=== PATIENT | female | born 1980 | race Caucasian/White ===

== ENCOUNTER 2018-03-18 12:17 | Emergency (ER) | payer BC, OTHER ==
[~2018-03-18] VITALS: Ht 152.4 cm; Wt 46.7 kg
--- NOTE | 2018-03-18 13:00 | NUR ---
presented to the er for r hand pain, on room air, breathing evenly and unlabored. kept comfortable. will continue to monitor accordingly.
[2018-03-18 13:50] VITALS: BP 101/55
--- NOTE | 2018-03-18 13:51 | NUR ---
Patient discharged to home in stable condition. Written and verbal after care instructions given. Patient verbalizes understanding of instruction.
== END 2018-03-18 13:50 | disposition home or self-care (01) ==
LOC: ER 12:17
DX: S63.681A Other sprain of right thumb, initial encounter (principal); F17.200 Nicotine dependence, unspecified, uncomplicated; Z98.890 Other specified postprocedural states; X58.XXXA Exposure to other specified factors, initial encounter; Y93.68 Activity, volleyball (beach) (court); Y92.89 Other specified places as the place of occurrence of the external cause; Y99.8 Other external cause status
CPT/HCPCS: 29125; 73130; 99283; A4606

== ENCOUNTER 2018-06-01 16:28 | Emergency (ER) | payer BC, MEDICAID ==
[~2018-06-01] VITALS: Ht 152.4 cm; Wt 45.4 kg
[2018-06-01 16:40] VITALS: BP 94/63
== END 2018-06-01 17:31 | disposition home or self-care (01) ==
LOC: ER 16:37
DX: H93.12 Tinnitus, left ear (principal); F17.200 Nicotine dependence, unspecified, uncomplicated; Z98.890 Other specified postprocedural states

== ENCOUNTER 2019-02-21 18:28 | Emergency (ER) | payer OTHER, BC ==
[~2019-02-21] VITALS: Ht 157.5 cm; Wt 49.9 kg
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
--- NOTE | 2019-02-21 19:02 | NUR ---
urine collected and sent to lab
--- NOTE | 2019-02-21 19:05 | NUR ---
endorsed to Kasandra LOPES for cecilio.
--- NOTE | 2019-02-21 19:30 | NUR ---
PT LEFT FOR CT VIA WC.
--- NOTE | 2019-02-21 19:39 | NUR ---
Yadi billy in [facility] - 02/21/19 at 1940 by [email or web address] FAMILY IS AT THE BEDSIDE.
--- NOTE | 2019-02-21 19:55 | NUR ---
Yadi billy in ED - 02/21/19 at 2007 by [email or web address] PT RETURNED FROM CT.
--- NOTE | 2019-02-21 19:55 | NUR ---
PT RETURNED FROM XRAY
--- NOTE | 2019-02-21 20:52 | NUR ---
Patient discharged to home in stable condition. Written and verbal after care instructions given. Patient verbalizes understanding of instruction AND RX. PT AMBULATED OUT WITH A STEADY GAIT. VSS. NAD NOTED.
[2019-02-21 20:53] VITALS: BP 101/51
== END 2019-02-21 20:53 | disposition home or self-care (01) ==
LOC: ER 18:30
DX: M54.6 Pain in thoracic spine (principal); F17.200 Nicotine dependence, unspecified, uncomplicated; M54.2 Cervicalgia; Z98.890 Other specified postprocedural states; V49.49XA Driver injured in collision with other motor vehicles in traffic accident, initial encounter; Y93.89 Activity, other specified; Y92.488 Other paved roadways as the place of occurrence of the external cause; Y99.8 Other external cause status
CPT/HCPCS: 72070-TC; 72110-TC; 84703-TC

== ENCOUNTER 2021-09-05 15:31 | Emergency (ER) | payer BC, MEDICAID ==
[~2021-09-05] VITALS: Ht 157.5 cm; Wt 51.7 kg
[2021-09-05 15:44] VITALS: BP 125/64
--- NOTE | 2021-09-05 16:46 | NUR ---
Patient discharged to home in stable condition. Written and verbal after care instructions given. Patient verbalizes understanding of instruction.
== END 2021-09-05 16:52 | disposition home or self-care (01) ==
LOC: ER 15:35
DX: S61.012A Laceration without foreign body of left thumb without damage to nail, initial encounter (principal); F17.200 Nicotine dependence, unspecified, uncomplicated; Z98.890 Other specified postprocedural states; W26.0XXA Contact with knife, initial encounter; Y93.89 Activity, other specified; Y92.090 Kitchen in other non-institutional residence as the place of occurrence of the external cause; Y99.8 Other external cause status
CPT/HCPCS: 99283; 29125; A6403